=== PATIENT | female | born 1990 | race Caucasian/White ===

== ENCOUNTER 2016-10-08 13:04 | Inpatient (IN) | payer OTHER ==
[2016-10-08] MEDS ORDERED: OXYTOCIN 10 UNIT/ML 1 ML VIAL IM PRN (14:24)
[2016-10-08] MEDS ORDERED: CARBOPROST TROMETHAMINE 250 MCG/ML 1 ML AMP IM PRN (14:24)
[2016-10-08] MEDS ORDERED: METHYLERGONOVINE 0.2 MG/ML 1 ML AMP IM PRN (14:24)
[2016-10-08] MEDS ORDERED: TERBUTALINE 1 MG/ML VIAL SQ PRN (14:24)
[2016-10-08] MEDS ORDERED: LIDOCAINE 1% (PF) 10 MG/ML (30 ML SDV) SQ PRN (14:24)
[2016-10-08 14:45] VITALS: BMI 34.9
[2016-10-08] MEDS: LACTATED RINGERS 1,000 ML IV SCH ×2 (14:48→18:07)
[2016-10-08 14:50] LABS: Basophils % (A) 0 %; CH 33.2; CHCM 35.4; Eosinophils % (A) 0 %; HCT 35.7 % (34.0-46.0); HDW 2.59; HGB 12.5 gm/dL (11.4-16.0); Luc # (Auto) 0.18; Luc % (Auto) 1; Lymphocytes # (A) 1.2 k/uL (1.0-4.8); Lymphocytes % (A) 8 %; MCH 33.1 pg (25.0-35.0); MCHC 35.1 g/dL (31.0-37.0); MCV 94.4 fL (80.0-100.0); Mean Platelet Volume 8.4; Monocytes # (A) 0.6 k/uL (0-1.0); Monocytes % (A) 4 %; Neutrophils % (A) 87 %; RBC 3.79 m/uL (3.80-5.40); RDW 13.3 % (11.5-15.5); WBC 14.9 k/uL (3.8-10.6); WBC (Perox) 16.07
[2016-10-08] MEDS: OXYTOCIN 30 UNITS/500 ML NS 30 UNIT in SALINE 1 500ML.BAG IV SCH (19:55)
[2016-10-08] MEDS ORDERED: BUTORPHANOL 1 MG/ML 1 ML VIAL IV PRN (20:06)
--- NOTE | 2016-10-08 20:11 | P.HPOB ---
History of Present Illness H&P Date: 10/08/16 Chief Complaint: 39-3/7 weeks, spontaneous rupture of membranes, early labor The patient is a 25-year-old 1 para 0 admitted at 39-3/7 weeks as established by last menstrual period and confirmed by 8 week ultrasound. She is admitted with documented spontaneous rupture of membranes of clear fluid and all signs reassuring. On admission, she is vale regularly on her own and has requested relative nonintervention. Her has been entirely uncomplicated and group B strep status is negative. Obstetrical history: 1 para 0 with current statistics listed in history of present illness. EDC of 10/12/2016 was established by last menstrual period and confirmed by an 8 week ultrasound. Laboratory workup demonstrates a blood type of A+ with a negative antibody screen. Rubella status is immune. All other laboratory workup was within normal limits. One hour Glucola was normal and group B strep status is negative. Gynecologic history is unremarkable with no history of any infections to include STDs. Review of Systems Review of systems is confined to history of present illness. Past Medical History Past Medical History: No Reported History History of Any Multi-Drug Resistant Organisms: None Reported Past Surgical History: No Surgical Hx Reported Past Psychological History: No Psychological Hx Reported Smoking Status: Never smoker Past Drug Use History: None Reported - Past Family History Mother History Unknown: Yes Medications and Allergies Home Medications Medication Instructions Recorded Confirmed Type Rpv-[id number]-Gypdq Acid 1 cap PO DAILY 10/08/16 10/08/16 History [-U Capsule (formulary)] Allergies Allergy/AdvReac Type Severity Reaction Status Date / Time No Known Allergies Allergy Verified 10/08/16 13:15 Exam - Vital Signs Vital signs: Vital Signs Temp Pulse Resp BP 10/08/16 14:24 97.9 F 67 16 119/61 10/08/16 13:17 97.9 F 67 16 119/61 Intake and Output 10/08/16 10/08/16 10/08/16 06:59 14:59 22:59 Other: Weight 89.358 kg Patient Weight 10/09/16 06:59 Weight 89.358 kg In general, this is a well-developed, well-nourished white female in discomfort as she is in labor. Her heart has a regular rhythm and rate without murmur. Her lungs are clear to auscultation bilaterally in all feng. Her abdomen is gravid, nondistended, has normal active bowel sounds, is soft, nontender, and without any palpable masses aside from the uterine fundus. Her extremities are without any cyanosis, clubbing, or significant edema and are nontender to palpation bilaterally. Most recent digital cervical examination on straights her cervix to be 8 cm dilated, 90-100% effaced, with the vertex in presentation at 0 station. Spontaneous rupture of membranes has been confirmed. Results Result Diagrams: 10/08/16 14:16 Abnormal Lab Results - Last 24 Hours (Table) 10/08/16 Range/Units 14:16 WBC 14.9 H (3.8-10.6) k/uL RBC 3.79 L (3.80-5.40) m/uL Neutrophils # 13.0 H (1.3-7.7) k/uL Assessment and Plan (1) Spontaneous rupture of amniotic membranes Status: Acute (2) Active labor at term Status: Acute Plan: The patient has been admitted for management of labor. She has requested relative nonintervention and, to this point, has declined pain medication. As she has essentially halted dilation at 7-1/2-8 cm over the course of the last 3 hours, we will add Pitocin augmentation at this time after discussion with her. She is a good candidate for either IV or epidural analgesia if she so chooses. She will continue to have close maternal and surveillance and expectant management will be practiced.
[2016-10-08] MEDS ORDERED: diphenhydrAMINE 50 MG CAP PO PRN (22:24)
[2016-10-08] MEDS ORDERED: IBUPROFEN 600 MG TAB PO PRN (22:24)
[2016-10-08] MEDS ORDERED: Acetaminophen-Codeine 300-30mg TAB PO PRN ×2 (22:24)
[2016-10-08] MEDS ORDERED: LANOLIN CREAM 5 GM TUBE TOPICAL PRN (22:24)
[2016-10-08] MEDS ORDERED: SIMETHICONE 80 MG CHEWABLE PO PRN (22:24)
[2016-10-08] MEDS ORDERED: HYDROCORTISONE 2.5% RECTAL CREAM 30 GM TUBE RECTAL PRN (22:24)
[2016-10-08] MEDS ORDERED: WITCH HAZEL 1 EACH MED..PAD TOPICAL PRN (22:24)
[2016-10-08] MEDS ORDERED: BENZOCAINE/MENTHOL SPRAY 1 GM/SPRAY AEROSOL TOPICAL PRN (22:24)
[2016-10-08] MEDS ORDERED: ZOLPIDEM 5 MG TAB PO PRN (22:24)
[2016-10-08] MEDS ORDERED: diphenhydrAMINE 50 MG/ML 1 ML VIAL IVP PRN ×2 (22:24)
[2016-10-08] MEDS ORDERED: ACETAMINOPHEN TAB 325 MG TAB PO PRN (22:24)
[2016-10-08] MEDS ORDERED: diphenhydrAMINE 25 MG CAP PO PRN (22:24)
--- NOTE | 2016-10-08 22:28 | P.PROBDLV ---
Vaginal Delivery Note - . Vaginal Delivery Note: The patient is a 25-year-old 1 para 0 admitted at 39-3/7 weeks by good dating parameters. She is admitted with documented spontaneous rupture of membranes in early labor. Her has been uncomplicated and group B strep status is negative. On labor and delivery, she made steady progress through the active phase of labor to approximately 7-8 cm at which time she arrested for approximately 2-3 hours. Pitocin augmentation was added and she progressed to complete where after she pushed for approximately 25 minutes to a normal spontaneous vaginal delivery of a viable 7 lbs. 8 oz. baby girl with Apgars of 8 at 1 minute and 9 at 5 minutes delivered in the right occiput anterior position. The placenta was delivered spontaneously, intact, and grossly normal with a fairly large accessory lobe. The surface was fractured through to the other side from traction on the cord but was otherwise intact. There was additionally a grossly normal three-vessel cord inserted approximately 4-5 cm from the margin of the placenta. The laceration was noted to be immediately adjacent to the cord. There was a second-degree midline perineal laceration which was noted and repaired in standard fashion using 3-0 chromic catgut without difficulty. Estimated blood loss for the case was approximate 400 mL. There were no complications. All sponge, instrument, and needle counts were correct. Both mother and infant are resting comfortably in recovery.
[2016-10-08] MEDS ORDERED: OXYTOCIN 30 UNITS/500 ML NS 30 UNIT in SALINE 1 500ML.BAG IV SCH (22:30)
[2016-10-09] MEDS: OXYTOCIN 30 UNITS/500 ML NS 30 UNIT in SALINE 1 500ML.BAG IV SCH (01:13)
[2016-10-09] MEDS: SENNOSIDES-DOCUSATE SODIUM 1 EACH TAB PO SCH (09:21)
--- NOTE | 2016-10-09 12:24 | P.PNOBGVD ---
Subjective - Subjective Patient reports: Reports appetite normal, Reports voiding normally, Reports pain well controlled, Reports ambulating normally [place]: doing well Objective - Latest Vital Signs Latest vital signs: Vital Signs Temp Pulse Resp BP 10/09/16 08:00 98.5 F 92 18 114/58 10/09/16 04:00 98.2 F 89 16 109/64 10/09/16 02:00 16 10/09/16 00:14 99.2 F 83 16 108/57 10/08/16 23:44 89 16 108/55 10/08/16 23:14 96 16 109/58 10/08/16 22:59 103 H 16 108/57 10/08/16 22:44 106 H 16 92/63 10/08/16 22:29 98 16 123/58 10/08/16 22:14 98.1 F 102 H 18 125/71 10/08/16 14:24 97.9 F 67 16 119/61 10/08/16 13:17 97.9 F 67 16 119/61 Intake and Output 10/08/16 10/09/16 10/09/16 22:59 06:59 14:59 Intake Total 16.716 1750 Output Total 1600 1600 Balance -1583.284 150 Intake: IV 1750 Lactated Ringers 1,000 ml 1000 @ 125 mls/hr IV .Q8H VIOLA Rx#:[id number] Oxytocin 30 Units/500 ml 500 Ns 30 unit In Saline 1 500ml.bag @ 1 MILLIUNIT/ MIN 1 mls/hr IV .Q24H VIOLA Rx#:[id number] Oxytocin 30 Units/500 ml 250 Ns 30 unit In Saline 1 500ml.bag @ 120 MILLIUNIT /MIN 120 mls/hr IV . Q4H10M [facility]OLA Rx#:[id number] Intake, IV Titration 16.716 Amount Oxytocin 30 Units/500 ml 16.716 Ns 30 unit In Saline 1 500ml.bag @ 1 MILLIUNIT/ MIN 1 mls/hr IV .Q24H [facility]OLA Rx#:[id number] Output: Estimated Blood Loss 1600 1600 Other: # Voids 1 1 - Exam Lungs: bilateral: normal Chest: Normal S1, Normal S2 Extremities: Present: normal Abdomen: Present: normal appearance, soft Uterus: Present: normal, firm (The uterine fundus as tonic and nontender below the umbilicus.) - Labs Labs: Abnormal Lab Results - Last 24 Hours (Table) 10/08/16 Range/Units 14:16 WBC 14.9 H (3.8-10.6) k/uL RBC 3.79 L (3.80-5.40) m/uL Neutrophils # 13.0 H (1.3-7.7) k/uL Assessment and Plan (1) Spontaneous rupture of amniotic membranes Current Visit: Yes Status: Acute Code(s): TYK7697 - SNOMED Code(s): 576380870 (2) Active labor at term Current Visit: Yes Status: Acute Code(s): PRZ6574 - SNOMED Code(s): 04384713 (3) (normal spontaneous vaginal delivery) Narrative/Plan: Continue routine care. Anticipate discharge home tomorrow. I have encouraged the patient continued ambulation in the hallways. Current Visit: Yes Status: Acute Code(s): O80 - ENCOUNTER FOR FULL-TERM UNCOMPLICATED DELIVERY SNOMED Code(s): 03486368
[2016-10-10 00:08] VITALS: TEMP 96.8
[2016-10-10] MEDS: SENNOSIDES-DOCUSATE SODIUM 1 EACH TAB PO SCH ×2 (04:04→13:35)
--- NOTE | 2016-10-10 08:44 | P.DS ---
Providers Date of admission: 10/08/16 13:46 Expected date of discharge: 10/10/16 Attending physician: Perez Edmond Primary care physician: Stated None - Discharge Diagnosis(es) (1) Spontaneous rupture of amniotic membranes Current Visit: Yes Status: Acute (2) Active labor at term Current Visit: Yes Status: Acute (3) (normal spontaneous vaginal delivery) Current Visit: Yes Status: Acute Hospital Course: The patient is a 25-year-old 1 para 0 admitted at 39-3/7 weeks by good dating parameters. She is admitted with documented spontaneous rupture of membranes in early labor with all signs reassuring. Her has been uncomplicated and group B strep status is negative. On labor and delivery, she made steady progress to approximate 7-8 cm at which time she arrested dilation for approximately 2-3 hours. Pitocin augmentation was added and she then progressed to complete and pushed fairly quickly to a normal spontaneous vaginal delivery of a 7 lbs. 8 oz. baby girl with Apgars of 8 at 1 minute and 9 at 5 minutes. Her course was unremarkable with vital signs remaining stable and her temperature was afebrile throughout. She was deemed stable for discharge by day #2 and was discharged home to follow-up in the office in 6 weeks' time routinely. Discharge instructions included calling for any significantly increased bleeding or foul-smelling lochia, significantly increased fever abdominal pain, perineal complaints, breast complaints, or anything else that concerned her. She is additionally instructed to have nothing in the vagina for at least 6 weeks time to include intercourse. She understood her instructions and agrees to follow up as noted above. Discharge medications included continued vitamins as she has opted to breast-feed. She was otherwise to use [id number] analgesic pain medications as needed. Maternal blood type is A+ and rubella status is immune. Procedures: #1. Pitocin augmentation over 2. Normal spontaneous vaginal delivery #3. Repair of perineal laceration Patient Condition at Discharge: Good Plan - Discharge Summary Discharge Medication List Cum-Trcl-Vuect Acid [-U Capsule (formulary)] 1 cap PO DAILY [History] Follow up Appointment(s)/Referral(s): Perez Edmond MD [STAFF PHYSICIAN] - 6 Weeks Discharge Disposition: HOME SELF-CARE
[2016-10-10 09:28] VITALS: BP 117/68; PULSE 84; RESP 16
== END 2016-10-10 12:08 | disposition home or self-care (01) | DRG 775 ==
LOC: FBPOP 13:04 → 4FBP 13:46
PROVIDERS: ADMIT Obstetrics & Gynecology; ATTEND Obstetrics & Gynecology
PROC: 10E0XZZ Delivery of Products of Conception, External Approach (ICD-10-PCS; principal; 2016-10-08)
PROC: 0KQM0ZZ Repair Perineum Muscle, Open Approach (ICD-10-PCS; 2016-10-08)
PROC: 3E033VJ Introduction of Other Hormone into Peripheral Vein, Percutaneous Approach (ICD-10-PCS; 2016-10-08)
DX: O70.1 Second degree perineal laceration during delivery (principal); Z37.0 Single live birth; O62.1 Secondary uterine inertia; Z3A.39 39 weeks gestation of pregnancy
CPT/HCPCS: 59025; 84112; 85025; 88307; 99213

== ENCOUNTER 2019-04-25 06:00 | Inpatient (IN) | payer BC ==
[2019-04-25] MEDS ORDERED: OXYTOCIN 10 UNIT/ML 1 ML VIAL IM PRN (06:47)
[2019-04-25] MEDS ORDERED: TERBUTALINE 1 MG/ML VIAL SQ PRN (06:47)
[2019-04-25] MEDS ORDERED: METHYLERGONOVINE 0.2 MG/ML 1 ML AMP IM PRN (06:47)
[2019-04-25] MEDS ORDERED: LIDOCAINE 0.5% (PF) 5 MG/ML (50 ML SDV) SQ PRN (06:47)
[2019-04-25] MEDS ORDERED: CARBOPROST TROMETHAMINE 250 MCG/ML 1 ML AMP IM PRN (06:47)
[2019-04-25 06:57] VITALS: BMI 41.7
[2019-04-25] MEDS ORDERED: OXYTOCIN 30 UNITS/500 ML NS 30 UNIT in SALINE 1 500ML.BAG IV SCH (07:00)
[2019-04-25] MEDS ORDERED: LACTATED RINGERS 1,000 ML IV SCH (07:00)
[2019-04-25 07:30] LABS: Basophils # (A) 0.1 k/uL (0-0.2); Basophils % (A) 1 %; Eosinophils # (A) 0.2 k/uL (0-0.7); Eosinophils % (A) 2 %; HCT 37.2 % (34.0-46.0); HGB 12.3 gm/dL (11.4-16.0); Lymphocytes # (A) 1.3 k/uL (1.0-4.8); Lymphocytes % (A) 13 %; MCH 31.1 pg (25.0-35.0); MCHC 33.1 g/dL (31.0-37.0); MCV 94.1 fL (80.0-100.0); Mean Platelet Volume 7.9; Monocytes # (A) 0.5 k/uL (0-1.0); Monocytes % (A) 5 %; Neutrophils # (A) 7.5 k/uL (1.3-7.7); Neutrophils % (A) 77 %; Platelet Count 194 k/uL (150-450); RBC 3.95 m/uL (3.80-5.40); RDW 13.4 % (11.5-15.5); WBC 9.7 k/uL (3.8-10.6)
[2019-04-25] MEDS ORDERED: BUTORPHANOL 1 MG/ML 1 ML VIAL IV PRN (08:18)
--- NOTE | 2019-04-25 08:22 | P.HPOB ---
History of Present Illness H&P Date: 04/25/19 Chief Complaint: 41+ weeks, induction The patient is a 28-year-old 2 para 1001 admitted at 41-2/7 weeks as established by last menstrual period and confirmed by a 10 week ultrasound. She is admitted for postdates induction of labor with a very favorable cervix. Her has been entirely uncomplicated and group B strep status is negative. testing and amniotic fluid index since passing her due date have also been reassuring and within normal limits. Obstetrical history: 2 para 1001 with 1 term vaginal deliveries without complications. Current statistics are listed in history of present illness. EDC of 04/16/2019 was established by last menstrual period and confirmed by a 10 week ultrasound. Laboratory workup demonstrates a blood type of A+ with a negative antibody screen. Rubella status is immune. The remainder of the laboratory workup was within normal limits. Early Glucola as well as second trimester Glucola were within normal limits and group B strep status is negative. Gynecologic history: Unremarkable with no history of any infections to include STDs. Review of Systems Review of systems is confined to history of present illness. Past Medical History Past Medical History: No Reported History History of Any Multi-Drug Resistant Organisms: None Reported Past Surgical History: No Surgical Hx Reported Past Anesthesia/Blood Transfusion Reactions: No Reported Reaction Past Psychological History: No Psychological Hx Reported Smoking Status: Never smoker Past Drug Use History: None Reported - Past Family History Mother History Unknown: Yes Medications and Allergies Home Medications Medication Instructions Recorded Confirmed Type Fhx-Uous-Yozke Acid 1 cap PO DAILY 10/08/16 04/25/19 History [-U Capsule (formulary)] Allergies Allergy/AdvReac Type Severity Reaction Status Date / Time No Known Allergies Allergy Verified 04/25/19 06:46 Exam Vital Signs Temp Pulse Resp BP Pulse Ox 04/25/19 06:45 97.6 F 77 16 125/74 97 Intake and Output 04/24/19 04/25/19 04/25/19 22:59 06:59 14:59 Other: Weight 103.419 kg In general, this is a well-developed, well-nourished white female in no acute distress. Her heart has a regular rhythm and rate without murmur. Her lungs are clear to auscultation bilaterally in all feng. Her abdomen is gravid, nondistended, has normal active bowel sounds, is soft, nontender, and without any palpable masses aside from uterine fundus. Her extremities are without any cyanosis, clubbing, or edema and are nontender to palpation bilaterally. Digital cervical examination demonstrates her cervix to be 4+ centimeters dilated, 60% effaced, the vertex in presentation at -2 station. Artificial rupture of membranes is carried out demonstrating clear fluid. Results Result Diagrams: 04/25/19 07:19 Assessment and Plan (1) Post-dates Current Visit: Yes Status: Acute Code(s): O48.0 - POST-TERM SNOMED Code(s): 13537176 Plan: The patient is admitted for induction of labor with all signs reassuring. Pitocin augmentation has been started and artificial rupture of membranes carried out. She is a good candidate for either IV or epidural analgesia, whichever she may choose. She will otherwise continue to have close maternal and surveillance and expectant management will be practiced.
[2019-04-25] MEDS ORDERED: diphenhydrAMINE 50 MG CAP PO PRN (10:52)
[2019-04-25] MEDS ORDERED: WITCH HAZEL 1 EACH MED..PAD TOPICAL PRN (10:52)
[2019-04-25] MEDS ORDERED: BENZOCAINE/MENTHOL SPRAY 1 GM/SPRAY AEROSOL TOPICAL PRN (10:52)
[2019-04-25] MEDS ORDERED: HYDROcodone/APAP 7.5-325MG 1 EACH TAB PO PRN (10:52)
[2019-04-25] MEDS ORDERED: ZOLPIDEM 5 MG TAB PO PRN (10:52)
[2019-04-25] MEDS ORDERED: diphenhydrAMINE 50 MG/ML 1 ML VIAL IVP PRN ×2 (10:52)
[2019-04-25] MEDS ORDERED: diphenhydrAMINE 25 MG CAP PO PRN (10:52)
[2019-04-25] MEDS ORDERED: LANOLIN CREAM 5 GM TUBE TOPICAL PRN (10:52)
[2019-04-25] MEDS ORDERED: IBUPROFEN 600 MG TAB PO PRN (10:52)
[2019-04-25] MEDS ORDERED: HYDROCORTISONE 2.5% RECTAL CREAM 30 GM TUBE RECTAL PRN (10:52)
[2019-04-25] MEDS ORDERED: SIMETHICONE 80 MG CHEWABLE PO PRN (10:52)
[2019-04-25] MEDS ORDERED: HYDROcodone/APAP 5-325MG 1 EACH TAB PO PRN (10:52)
[2019-04-25] MEDS ORDERED: ACETAMINOPHEN TAB 325 MG TAB PO PRN (10:52)
--- NOTE | 2019-04-25 10:56 | P.PROBDLV ---
Vaginal Delivery Note - . Vaginal Delivery Note: The patient is a 28-year-old 2 para 1001 admitted at 41-2/7 weeks as established by good dating parameters perches admitted for postdates induction of labor with a very favorable cervix. Her has been entirely uncomplicated and group B strep status is negative. testing since her due date has past has been reassuring as has amniotic fluid index testing. On labor and delivery, all signs are reassuring. Pitocin augmentation was started and she underwent artificial rupture of membranes demonstrating clear fluid. She made fairly rapid progress through the active phase of labor to complete after which time she pushed over the course of approximately 3 contractions to a normal spontaneous vaginal delivery of a viable 9 lbs. 3 oz. baby boy with Apgars of 9 at 1 minute and 9 at 5 minutes delivered in the right occiput anterior position. The placenta was delivered spontaneously, intact, and grossly normal with a grossly normal, centrally inserted three-vessel cord. There was a second-degree midline perineal laceration over the site of a previous laceration scar which was repaired in standard fashion using 3-0 chromic catgut without difficulty. Estimated blood loss for the entire case was approximately 300 mL. There were no complications. All sponge, instrument, and needle counts were correct. Both mother and infant are resting comfortably in recovery.
[2019-04-25] MEDS ORDERED: OXYTOCIN 20 UNITS/1000 ML NS 1,000 ML IV SCH (11:00)
[2019-04-25] MEDS: valACYclovir HCL 1,000 MG TABLET PO SCH ×2 (11:46→23:39)
[2019-04-26] MEDS: SENNOSIDES-DOCUSATE SODIUM 1 EACH TAB PO SCH ×2 (00:02→08:00)
[2019-04-26 09:09] VITALS: BP 114/62; PULSE 66; RESP 18; TEMP 98.2
--- NOTE | 2019-04-26 09:32 | P.DS ---
Providers Date of admission: 04/25/19 06:30 Expected date of discharge: 04/26/19 Attending physician: Perez Edmond Primary care physician: Stated None - Discharge Diagnosis(es) (1) Post-dates Current Visit: Yes Status: Acute (2) (normal spontaneous vaginal delivery) Current Visit: No Status: Acute Hospital Course: The patient is a 28-year-old 2 para 1001 admitted at 41-2/7 weeks by good dating parameters perches admitted for postdates induction with all signs reassuring. Her was uncomplicated and group B strep status was negative. On labor and delivery, she had Pitocin started followed by artificial rupture of membranes for clear fluid. She made rapid progress through the active phase of labor to complete and then pushed quickly to a normal spontaneous vaginal delivery of a viable 9 lbs. 3 oz. baby boy with Apgars of 9 at 1 minute and 9 at 5 minutes. Her course was unremarkable with vital signs remaining stable and her temperature was afebrile throughout. She was deemed stable for discharge on day #1 was discharged home to follow-up in the office in 6 weeks' time routinely. Discharge instructions included calling for any significantly increased bleeding or fossil and lochia, significantly increased fever or abdominal pain, perineal complaints, breast complaints, or anything else that concerned her. She was additionally instructed to have nothing in the vagina for at least 6 weeks time to include intercourse. She understood her instructions and agrees to follow up as noted above. Discharge medications included continued vitamins as she has opted to breast-feed. She otherwise was to use [id number] analgesic pain medications as needed. Maternal blood type is A+ and rubella status is immune. Procedures: #1. Pitocin induction #2. Artificial rupture of membranes #3. Normal spontaneous vaginal delivery #4. Repair of perineal laceration Patient Condition at Discharge: Good Plan - Discharge Summary New Discharge Prescriptions: No Action Xsf-Mtfu-Vzjtq Acid [-U Capsule (formulary)] 1 cap PO DAILY Discharge Medication List Mpe-Aahy-Hxnxj Acid [-U Capsule (formulary)] 1 cap PO DAILY 10/08/16 [History] Follow up Appointment(s)/Referral(s): Perez Edmond MD [STAFF PHYSICIAN] - 6 Weeks Discharge Disposition: HOME SELF-CARE
== END 2019-04-26 13:51 | disposition home or self-care (01) | DRG 807 ==
LOC: 4FBP 06:30
PROVIDERS: ADMIT Obstetrics & Gynecology; ATTEND Obstetrics & Gynecology
PROC: 10E0XZZ Delivery of Products of Conception, External Approach (ICD-10-PCS; principal; 2019-04-25)
PROC: 0KQM0ZZ Repair Perineum Muscle, Open Approach (ICD-10-PCS; 2019-04-25)
PROC: 3E033VJ Introduction of Other Hormone into Peripheral Vein, Percutaneous Approach (ICD-10-PCS; 2019-04-25)
PROC: 10907ZC Drainage of Amniotic Fluid, Therapeutic from Products of Conception, Via Natural or Artificial Opening (ICD-10-PCS; 2019-04-25)
DX: O48.0 Post-term pregnancy (principal); Z37.0 Single live birth; O70.1 Second degree perineal laceration during delivery; Z3A.41 41 weeks gestation of pregnancy; Z79.899 Other long term (current) drug therapy
CPT/HCPCS: 85025; 86850; 86900; 86901